=== PATIENT | male | born 2000 | race Hispanic/Latino ===

== ENCOUNTER 2022-04-24 08:51 | Emergency (ER) | payer MEDICAID, OTHER ==
[~2022-04-24] VITALS: Ht 172.7 cm; Wt 81.6 kg
[2022-04-24] MEDS ORDERED: KETOROLAC 30MG VIAL (30MG/ML) IM STA (09:06)
[2022-04-24 09:21] VITALS: BP 131/79
[2022-04-24] MEDS ORDERED: NAPR375T6 PO (10:45)
[2022-04-25] MEDS ORDERED: CYCL10TA16 PO (15:29)
== END 2022-04-24 11:00 | disposition home or self-care (01) ==
LOC: EDH 08:51
DX: S46.912A Strain of unspecified muscle, fascia and tendon at shoulder and upper arm level, left arm, initial encounter (principal); R51.9 Headache, unspecified; V89.2XXA Person injured in unspecified motor-vehicle accident, traffic, initial encounter; Y93.I9 Activity, other involving external motion; Y92.488 Other paved roadways as the place of occurrence of the external cause; Y99.8 Other external cause status
CPT/HCPCS: 99284; 72100; 73030; 96372; J1885

== ENCOUNTER 2022-04-25 14:19 | Emergency (ER) | payer OTHER, MEDICAID ==
[~2022-04-25] VITALS: Ht 172.7 cm; Wt 81.6 kg
[~2022-04-25 14:19] MED LIST: NAPR375T6 PO
[2022-04-25] MEDS ORDERED: CYCL10TA16 PO (15:29)
[2022-04-25] MEDS ORDERED: CYCLOBENZAPRINE HCL 10 MG TABLET PO ONE (15:30)
[2022-04-25 16:03] VITALS: BP 114/78
== END 2022-04-25 16:05 | disposition home or self-care (01) ==
LOC: EDH 14:19
DX: S46.912A Strain of unspecified muscle, fascia and tendon at shoulder and upper arm level, left arm, initial encounter (principal); S46.919A Strain of unspecified muscle, fascia and tendon at shoulder and upper arm level, unspecified arm, initial encounter; V89.2XXA Person injured in unspecified motor-vehicle accident, traffic, initial encounter; Y93.I9 Activity, other involving external motion; Y92.488 Other paved roadways as the place of occurrence of the external cause; Y99.8 Other external cause status